=== PATIENT | female | born 1975 | race Caucasian/White ===

== ENCOUNTER → 2019-07-24 13:51 | Outpatient (CLI) | payer OTHER, SELFPAY ==
[2019-07-24 17:22] LABS: Influenza A - CEPHEID Flu A NEGATIVE (NEGATIVE); Influenza B - CEPHEID Flu B NEGATIVE (NEGATIVE)
[2019-07-26 12:04] LABS: COVID19 Sendout Not Detected (Not Detected)
== END ==
PROVIDERS: Visit Provider Physician Assistant
DX: J06.9 Acute upper respiratory infection, unspecified (principal); R05 Cough; R50.9 Fever, unspecified; R68.89 Other general symptoms and signs
CPT/HCPCS: 87502; 87635

== ENCOUNTER → 2019-07-27 11:29 | Outpatient (CLI) | payer SELFPAY | PROVIDERS: Visit Provider Family Medicine | DX: J02.9 Acute pharyngitis, unspecified (principal) | CPT/HCPCS: 87070 ==

== ENCOUNTER → 2019-08-02 12:13 | Outpatient (CLI) | payer SELFPAY ==
--- NOTE | 2019-08-02 12:16 | DI.US.S_ITS ---
PROCEDURE: US SOFT TISSUE HEAD AND NECK INDICATIONS: LEFT SUBMANDIBULAR LUMP TECHNIQUE: Real-time scanning was performed of the neck region of interest, with image documentation. COMPARISON: None. FINDINGS: Scanning is performed at the area of palpable lump involving the left submandibular gland. There is a hypoechoic nodule seen that measures 3.6 x 1.2 x 3 cm. Mild increased internal vascularity can be seen. Adjacent prominent lymph nodes are seen that measure up to 2 x 0.6 x 0.9 cm. IMPRESSION: Apparent enlargement and can be seen associated with the left submandibular gland. Please consider a dedicated CT study for further evaluation. As clinically appropriate, a percutaneous ultrasound-guided biopsy could also be considered. Dictated by: Logan Sloan M.D. on 08/02/2019 at 12:16 Approved by: Logan Sloan M.D. on 08/02/2019 at 12:17
== END ==
PROVIDERS: Referring Provider Family Medicine; Visit Provider Family Medicine
DX: R59.0 Localized enlarged lymph nodes (principal)
CPT/HCPCS: 76536

== ENCOUNTER → 2019-08-13 11:09 | Outpatient (CLI) | payer SELFPAY ==
--- NOTE | 2019-08-13 11:19 | DI.CT.S_ITS ---
PROCEDURE: CT SOFT TISSUE NECK WO CON INDICATIONS: possible abscess of her submandibular salivary gland TECHNIQUE: Non-contrast 3.0 mm axial sections acquired from the sella to the aortic arch. Additional oblique axial 3.0 mm sections acquired through the pharynx. 3 mm thick coronal and sagittal reformats were generated. For radiation dose reduction, the following was used: automated exposure control. COMPARISON: [facility], , US SOFT TISSUE HEAD AND NECK, 08/02/2019, 12:25. FINDINGS: Image quality: Excellent. Lymph nodes: At the area of clinical concern, there is a solid nodule seen that measures 18 x 13 mm in greatest axial dimension, with a craniocaudal extent of 28 mm, which demonstrates an internal density of 35 Hounsfield units. This is seen immediately posterior to the left submandibular gland. No other enlarged lymph nodes are seen. Vessels: Non-opacified vessels appear normal in caliber. Neck spaces: The oropharynx, nasopharynx, and pharynx demonstrate no mucosal lesions. The vocal cords, false vocal cords, pyriform sinuses, epiglottis, vallecula, and tongue base all appear normal. Extramucosal spaces appear unremarkable. Glands: The submandibular glands appear normal, without stones. No parotid gland abnormality can be seen on these noncontrast images. Thyroid gland demonstrates a heterogeneous appearance, with a 7 mm hypodense lesion seen on the left posteriorly, as on series 2 image 42. Miscellaneous: Visualized brain and orbits appear normal. Lung apices appear clear. Superficial soft tissues appear normal. IMPRESSION: These imaging findings are most compatible with an abnormal, enlarged lymph node seen at the clinical concern, just posterior to the left submandibular gland. No fluid collections are seen to suggest abscess. Please consider ultrasound-guided fine needle aspiration for further evaluation. Heterogeneous thyroid gland, with a 7 mm hypodense lesion seen posteriorly. Please consider a dedicated thyroid ultrasound for further evaluation. Dictated by: Logan Sloan M.D. on 08/13/2019 at 10:57 Approved by: Logan Sloan M.D. on 08/13/2019 at 11:02
== END ==
PROVIDERS: PCP Family Medicine; Referring Provider Family Medicine; Visit Provider Family Medicine
DX: R59.0 Localized enlarged lymph nodes (principal); E07.9 Disorder of thyroid, unspecified
CPT/HCPCS: 70490

== ENCOUNTER → 2019-08-18 10:39 | Outpatient (CLI) | payer SELFPAY ==
--- NOTE | 2019-08-18 10:48 | DI.US.S_ITS ---
PROCEDURE: US THYROID INDICATIONS: THYROID NODULE TECHNIQUE: Real-time scanning was performed of the thyroid gland, with image documentation. COMPARISON: [facility], CT, CT SOFT TISSUE NECK WO CON, 08/13/2019, 11:13. [facility], US, US SOFT TISSUE HEAD AND NECK, 08/02/2019, 12:25. FINDINGS: Right: Thyroid lobe measures 5.6 x 2.0 x 2.2 cm. It is markedly heterogeneous with numerous tiny low-density cystic areas and probable tiny solid nodules. The lesion identified on CT is a 7 mm benign cyst. Left: Thyroid lobe measures 5.8 x 1.9 x 2.2 cm. It is markedly heterogeneous in echo pattern with numerous tiny low-density cystic areas and probable tiny solid nodules. No measurable nodule is identified. Isthmus: 6 mm thick. Nodule number: 1 Location: Left posterior mid/lower pole Size: 0.7 cm. Composition: Cystic Echogenicity: Anechoic Shape: wider than tall. Margins: Smooth Echogenic foci: None Total points: Zero ACR TI-RADS category: Benign IMPRESSION: 1. Markedly heterogeneous thyroid with multiple probable tiny solid nodules and cysts. Findings are consistent with a multinodular thyroid. 2. The measurable lesion, in the left lobe, measures 7 mm, and is a benign cyst. ACR TI-RADS definitions and recommendations: TI-RADS 1 (benign): 0 points. FNA not needed. TI-RADS 2 (not suspicious): 2 points. FNA not needed. TI-RADS 3 (mildly suspicious): 3 points. * FNA if 2.5 cm or larger, follow up if 1.5 cm or larger (at 1, 3, and 5 years). TI-RADS 4 (moderately suspicious): 4-6 points. * FNA if 1.5 cm or larger, follow up if 1 cm or larger (at 1, 2, 3, and 5 years). TI-RADS 5 (highly suspicious): 7 points or more. * FNA if 1 cm or larger, follow up if 0.5 cm or larger (every year for 5 years). Dictated by: Thomas Kapoor M.D. on 08/18/2019 at 11:50 Approved by: Thomas Kapoor M.D. on 08/18/2019 at 11:57
== END ==
PROVIDERS: PCP Family Medicine; Referring Provider Family Medicine; Visit Provider Family Medicine
DX: E04.1 Nontoxic single thyroid nodule (principal)
CPT/HCPCS: 76536

== ENCOUNTER → 2019-08-20 13:27 | Outpatient (CLI) | payer SELFPAY ==
[2019-08-20 14:49] LABS: Add Manual Diff / Slide Review NO; Basophils Absolute Auto 0 /uL (0-100); Basophils Percent Auto 0.5 % (0-2); Eosinophils Absolute Auto 100 /uL (0-450); Eosinophils Percent Auto 0.8 % (2-4); Hematocrit 42.3 % (36-46); Hemoglobin 14.6 g/dL (12.0-16.0); Lymphocytes Absolute Auto 2800 /uL (1100-4500); Lymphocytes Percent Auto 31.7 % (25-40); Mean Corpuscular HGB Conc 34.6 % (30-36); Mean Corpuscular Hemoglobin 31.8 PG (26-34); Mean Corpuscular Volume 92.1 fL (80-100); Monocytes Absolute Auto 700 /uL (0-900); Monocytes Percent Auto 7.5 % (3-14); Neutrophils Absolute Auto 5300 /uL (1500-7000); Neutrophils Percent Auto 59.5 % (50-75); Platelet Count 234 X10^3/uL (150-400); Red Blood Cell Count 4.59 X10^6/uL (4.0-5.2); Red Cell Distribution Width 13.1 % (11.6-14.8); White Blood Cell Count 8.9 X10^3/uL (4.5-11.0)
[2019-08-20 16:30] LABS: TSH w/ Reflex to FT4 1.32 uIU/mL (0.47-4.68)
== END ==
PROVIDERS: Registered Nurse; PCP Family Medicine; Referring Provider Family Medicine; Visit Provider Family Medicine
DX: R59.1 Generalized enlarged lymph nodes (principal)
CPT/HCPCS: 36415; 84443; 85025

== ENCOUNTER → 2019-08-24 08:08 | Outpatient (CLI) | payer SELFPAY ==
--- NOTE | 2019-08-24 | PATH_ITS ---
Note [facility] Accession Number: [id number] TESTS RESULT FLAG UNITS REF RANGE LAB Clinician Provided Cytology Information No. of containers..01 Other (Miscellaneous) No. of containers..10 Previously Prepared Cytology Slide 01 LEFT SUBMANDIBULAR L DIAGNOSIS: 01 LEFT SUBMANDIBULAR LYMPH NODE, FINE NEEDLE ASPIRATION. NEGATIVE FOR MALIGNANT CELLS. FINDINGS SUGGEST A BENIGN, REACTIVE LYMPH NODE, SEE COMMENT. COMMENT: EXAMINATION OF THE SLIDES REVEALS A CELLULAR ASPIRATE COMPOSED OF MIXED SMALL AND INTERMEDIATE SIZED LYMPHOCYTES, INTERSPERSED DEBRIS-LADEN MACROPHAGES AND LYMPHOHISTIOCYTIC FRAGMENTS, FEATURES THAT ARE SUGGESTIVE OF REACTIVE LYMPH NODE SAMPLING. THERE IS NO EVIDENCE OF SUPPURATIVE OR GRANULOMATOUS LYMPHADENITIS ON THIS SAMPLE. CONCURRENT FLOW CYTOMETRY DID NOT REVEAL AN ABNORMAL B- OR T-CELL POPULATION (SEE FLOW REPORT #[id number] FOR DETAILS). HOWEVER, IF CLINICALLY OR RADIOLOGICALLY SUSPICIOUS FOR MALIGNANCY, EXCISIONAL BIOPSY SUGGESTED, IF INDICATED, SAMPLING ERROR CANNOT BE ENTIRELY EXCLUDED. Pathologist ICD10: 01 R59.0 01 Visit Reasons: (prev. neg CV) cough, swollen lymph, ear pain Intake Note: pt has been dealing with swelling in left lymph node and sore throat pt was tested for flu and covid on friday, both were negative pt big concern is its really painful and isnt getting better pt is starting to have trouble eating and drinking because of the pain lots of pressure, and somtimes a burn fevers on and off, controlled with tylenol. Note: 43yo woman without significant medical hx here due to left sided ear pain, swollen lymph node, and sore throat. She reports that since March she has intermittently had cold/flu- like symptoms, ear pain, lymph node swelling on the left side. She has missed work multiple times due to this. Around 1.5 weeks ago, she developed significant left ear pain and a lymph node on the left side under her jaw became very swollen. This has persisted since then. Her throat then became sore, She has had persistent fevers, up to 101.8F recently. She has been taking Tylenol regularly. She has frequent nausea, primarly because it hurts so much to swallow she ends up gagging. She has a mild cough, no SOB. She denies any diarrhea. She denies recent tobacco use because it echevarria her throat to smoke, but she does usually use cigarettes. She denies any known contacts with COVID. She was seen on 07/23 here, and tested negative for COVID-19. (1) Sore throat: Assessment and Plan - Kitty Puentes MD: with significant erythema and exudates, tonsillar enlargement and associated left ear pain and enlarged/tender lymph node. Rapid strep negative. Sent for culture as well. Will treat throat with prednisone for now to help with symptom management due to inability to tolerate PO. If throat culture negative and LN remains enlarged, plan to obtain u/s of lymph node to evaluate further. 01 Mario Mera MD, Pathologist NPI- [id number] Hussain Dominguez, Storage Facility Rental Clerk ([facility]) 01 30 CC, COLORLESS, CLEAR RECIEVED: IN CYTOLYT WITH 6 ALCOHOL FIXED AND 4 QUICK STAINED SLIDES ALSO TWO RPMI TUBES WERE RECEIVED. /DEANDRE 08/25/2019 0619 Local FLAG LEGEND: L-Low Normal,H-High Normal,LL-Alert Low,HH-Alert High <-Panic Low,>-Panic High,A-Abnormal,AA-Critical Abnormal Performed at: 01 =Z [facility] [address], [place] [address] Waldo Ramirez MD, Performed at: 01 [facility] [address], [place], [place] [id number] MD Waldo Ramirez MD Phone: [phone]
--- NOTE | 2019-08-24 08:18 | DI.US.S_ITS ---
PROCEDURE: US FINE NEEDLE ASPIRATION INDICATIONS: ENLARGED LYMPH NODE TECHNIQUE: The indications, alternatives, benefits, risks, and complications of the procedure were explained to the patient. Written informed consent was obtained and placed in the chart. Real-time sonography was utilized to choose the site for percutaneous lymph node sampling. The skin was prepped and draped in the usual sterile fashion. 1% lidocaine was infiltrated down to the site of interest. Serial hypodermic needles were then advanced into the site of interest under direct sonographic visualization, and serial needle aspirates were obtained. The needles were then withdrawn; a bandage was applied to the procedure site. COMPARISON: None. FINDINGS: Sample site(s): Left neck, below the angle of the jaw Needle: 25 gauge, 22 gauge. Number of passes: 6 with 25 gauge, one with a 22 gauge. Medications: 1% lidocaine for local anaesthesia. Complications: None. IMPRESSION: Successful ultrasound-guided left submandibular lymph node fine needle aspiration, with cytology results pending. Dictated by: Delbert Rain M.D. on 08/24/2019 at 10:11 Approved by: Delbert Rain M.D. on 08/24/2019 at 10:13
== END ==
PROVIDERS: PCP Family Medicine; Referring Provider Family Medicine; Visit Provider Family Medicine
DX: R59.0 Localized enlarged lymph nodes (principal)
CPT/HCPCS: 10005

== ENCOUNTER → 2019-09-01 14:52 | Outpatient (CLI) | payer SELFPAY ==
[2019-09-01 15:27] LABS: Add Manual Diff / Slide Review NO; Basophils Absolute Auto 100 /uL (0-100); Eosinophils Absolute Auto 0 /uL (0-450); Eosinophils Percent Auto 0.6 % (2-4); Hematocrit 41.3 % (36-46); Hemoglobin 14.2 g/dL (12.0-16.0); Lymphocytes Absolute Auto 2700 /uL (1100-4500); Lymphocytes Percent Auto 36.2 % (25-40); Mean Corpuscular HGB Conc 34.4 % (30-36); Mean Corpuscular Hemoglobin 31.8 PG (26-34); Mean Corpuscular Volume 92.4 fL (80-100); Monocytes Absolute Auto 600 /uL (0-900); Monocytes Percent Auto 7.3 % (3-14); Neutrophils Absolute Auto 4200 /uL (1500-7000); Neutrophils Percent Auto 54.9 % (50-75); Platelet Count 223 X10^3/uL (150-400); Red Blood Cell Count 4.47 X10^6/uL (4.0-5.2); Red Cell Distribution Width 13.6 % (11.6-14.8); White Blood Cell Count 7.6 X10^3/uL (4.5-11.0)
[2019-09-01 17:38] LABS: Alanine Aminotransferase 13 IU/L (<35); Albumin 4.5 g/dL (3.5-5.0); Albumin Globulin Ratio 1.4 (1.0-2.8); Alkaline Phosphatase 171 U/L (38-126); Aspartate Aminotransferase 24 IU/L (14-36); BUN Creatinine Ratio 21.5 (6-22); Bilirubin Total 0.3 mg/dL (0.2-1.3); Blood Urea Nitrogen 14 mg/dL (7-17); Calcium 9.8 mg/dL (8.4-10.2); Carbon Dioxide 28 mmol/L (22-32); Chloride 101 mmol/L (98-107); Estimated Glomerular Filt Rate > 60.0 mL/min (>60); Globulin 3.3 g/dL (1.7-4.1); Glucose 91 mg/dL (70-100); HEMOLYSIS < 15 (0-50); Potassium 4.2 mmol/L (3.4-5.1); Sodium 136 mmol/L (137-145); Total Protein 7.8 g/dL (6.3-8.2)
== END ==
PROVIDERS: PCP Family Medicine; Referring Provider Family Medicine; Visit Provider Family Medicine
DX: R59.0 Localized enlarged lymph nodes (principal); R61 Generalized hyperhidrosis
CPT/HCPCS: 36415; 80053; 85025

== ENCOUNTER → 2019-09-18 13:38 | Outpatient (CLI) | payer OTHER, SELFPAY ==
[2019-09-19 08:22] LABS: COVID19 Sendout Not Detected (Not Detect)
== END ==
PROVIDERS: PCP Family Medicine; Visit Provider Physician Assistant
DX: Z01.818 Encounter for other preprocedural examination (principal); Z11.59 Encounter for screening for other viral diseases
CPT/HCPCS: 87635

== ENCOUNTER 2019-09-21 12:26 | Day surgery (SDC) | payer SELFPAY ==
[2019-09-15 11:41] VITALS: BMI 24.9
--- NOTE | 2019-09-17 14:21 | SUR.PREOP ---
Per pt she is schd to have covid testing on Sat 09/20 @ [id number] here @ [facility]
[2019-09-21] VITALS (7 sets, daily range): BP systolic 102–113; BP diastolic 66–74; PULSE 52–70; RESP 13–19; TEMP 36.3–36.8; O2SAT 96–99; BMI 24.9
--- NOTE | 2019-09-21 | PATH_ITS ---
Note [facility] Accession Number: [id number] TESTS RESULT FLAG UNITS REF RANGE LAB Clinician Provided Cytology Information No. of containers..02 Previously Prepared Cytology Slide 01 LYMPH NODE OF LEFT NECK DIAGNOSIS: 01 LYMPH NODE OF LEFT NECK INADEQUATE, INSUFFICIENT CELLS FOR STUDY. COMMENT: The specimen is paucicellular and consists of scant lymphoid cells with air drying artifact, which limits further classification. If there is a clinical suspicion for neoplasia or malignancy, tissue examination is recommended. This case is also reviewed by Dr. Yessy Mera who concurs with the given interpretation. Pathologist ICD10: 01 R22.1 Shirley Greene MD, Pathologist NPI- [id number] Dejan Lennon, Technical Solution Architect ([facility]) 01 RECIEVED: 2 ALCOHOL FIXED SLIDES IN [facility]. /KAVEH 09/22/2019 1015 Local FLAG LEGEND: L-Low Normal,H-High Normal,LL-Alert Low,HH-Alert High <-Panic Low,>-Panic High,A-Abnormal,AA-Critical Abnormal Performed at: 01 =Z [facility] [address], [place] [address] Waldo Ramirez MD, Performed at: 01 [facility] [address], [place], [place] [id number] MD Waldo Ramirez MD Phone: [phone]
[2019-09-21] MEDS: LACTATED RINGERS 1,000 ML 100 ML IV (12:40)
--- NOTE | 2019-09-21 14:59 | PM.PREOP ---
Pre-operative Note COVID-19 COVID-19 status: Negative Result date/Date tested (Pos, Neg/Pending): 09/18/19 Interval Note History & Physical reviewed/Exam performed by Physician: Yes Changes to H&P: No
--- NOTE | 2019-09-21 15:26 | SUR.OPER ---
Supine on padded OR bed, head on pillow, arms secured on padded arm boards at <90 degrees abduction, legs uncrossed, safety belt at thigh, tape over blanket over lower legs.
[2019-09-21] MEDS: CEFAZOLIN 2 GM/100 ML FROZ.PIGGY IV (15:31)
[2019-09-21] MEDS: BUPIVACAINE 0.25% (PF) VIAL 30 ML INJ (15:49)
--- NOTE | 2019-09-21 16:18 | PM.OP.1 ---
Operative Date/Time/Diagnoses Date of procedure: 09/21/19 Time of procedure: 16:18 Pre-op diagnosis: Left neck lymphadenopathy Post-op diagnosis: same Procedure & Clinicians Procedure: Excision left neck lymph node Same procedure as scheduled: Yes Indications: 44-year-old female with fever night sweats and left neck lymphadenopathy. She underwent a needle biopsy of lymph node which was nondiagnostic and she continues to be symptomatic and therefore she was recommended to undergo excisional lymph node biopsy. Surgeon: Brent Jenkins Anesthesia Type: General Operative Notes Findings: Mild left neck lymphadenopathy Specimen(s): other (Left neck lymph node) Estimated Blood Loss (mL): 5 Procedure in detail: Patient brought to the operating room placed supine on the table. Bilateral lower extremity compression devices were applied. She received 2 g of Ancef prior to skin incision. She was induced and intubated with a LMA. Time-out was performed to ensure the correct patient procedure necessary equipment within the operating room. She was then prepped and draped in sterile fashion. I identified the angle of the mandible and the sternocleidomastoid muscle. The area of palpable lymphadenopathy had been identified in the preoperative area and marked it was inferior to the mandible just posterior to the submandibular gland. Skin incision was made anterior to the sternocleidomastoid muscle of approximately 2 cm. The subcutaneous tissues were divided with electrocautery. The platysma was sharply incised. The anterior of aspect of the sternocleidomastoid was retracted posteriorly. A superficial cervical lymph node was palpated and then meticulously dissected out. It was passed off the field as specimen labeled left neck lymph node. The node was approximately 1.5 cm and was transected into the 3 pieces. The wound was irrigated hemostasis was achieved and then the skin was closed in a running fashion using 4 Monocryl suture followed by the application of Dermabond. Patient tolerated procedure well was extubated and transferred to recovery in stable condition. Complications: none Post-operative Condition: stable Disposition: same day surgery
[2019-09-21] MEDS: OXYCODONE/ACETAMINOPHEN 5/325 TABLET 1 TAB PO (16:36)
== END 2019-09-21 17:15 | disposition home or self-care (01) ==
PROVIDERS: PCP Family Medicine; Referring Provider Surgery; Visit Provider Surgery
PROC: (CPT 38510; principal; 2019-09-21 13:45)
DX: R59.1 Generalized enlarged lymph nodes (principal)
CPT/HCPCS: 38510; J0690; J1100; J2250; J2405; J2704; J3010

== ENCOUNTER → 2019-12-16 09:33 | Outpatient (CLI) | payer SELFPAY | PROVIDERS: PCP Family Medicine; Referring Provider Family Medicine; Visit Provider Family Medicine | DX: M25.50 Pain in unspecified joint (principal); R68.89 Other general symptoms and signs | CPT/HCPCS: 36415; 86617 ==

== ENCOUNTER → 2020-06-29 15:03 | Outpatient (CLI) | payer SELFPAY ==
[2020-06-29 15:51] LABS: Add Manual Diff / Slide Review NO; Basophils Absolute Auto 100 /uL (0-100); Basophils Percent Auto 1.3 % (0-2); Eosinophils Absolute Auto 100 /uL (0-450); Eosinophils Percent Auto 0.6 % (2-4); Hematocrit 41.4 % (36-46); Hemoglobin 14.3 g/dL (12.0-16.0); Lymphocytes Absolute Auto 2700 /uL (1100-4500); Lymphocytes Percent Auto 28.4 % (25-40); Mean Corpuscular HGB Conc 34.6 % (30-36); Mean Corpuscular Hemoglobin 31.7 PG (26-34); Mean Corpuscular Volume 91.8 fL (80-100); Monocytes Absolute Auto 500 /uL (0-900); Monocytes Percent Auto 5.6 % (3-14); Neutrophils Absolute Auto 6100 /uL (1500-7000); Neutrophils Percent Auto 64.1 % (50-75); Platelet Count 212 X10^3/uL (150-400); Red Blood Cell Count 4.52 X10^6/uL (4.0-5.2); Red Cell Distribution Width 13.1 % (11.6-14.8); White Blood Cell Count 9.4 X10^3/uL (4.5-11.0)
[2020-06-29 16:24] LABS: Alanine Aminotransferase 15 IU/L (<35); Albumin 4.6 g/dL (3.5-5.0); Albumin Globulin Ratio 1.7 (1.0-2.8); Alkaline Phosphatase 145 U/L (38-126); Aspartate Aminotransferase 25 IU/L (14-36); BUN Creatinine Ratio 19.5 (6-22); Bilirubin Total 0.3 mg/dL (0.2-1.3); Blood Urea Nitrogen 16 mg/dL (7-17); Calcium 9.4 mg/dL (8.4-10.2); Carbon Dioxide 27 mmol/L (22-32); Chloride 103 mmol/L (98-107); Estimated Glomerular Filt Rate > 60.0 mL/min (>60); Globulin 2.7 g/dL (1.7-4.1); Glucose 96 mg/dL (70-100); HEMOLYSIS < 15 (0-50); Potassium 4.4 mmol/L (3.4-5.1); Sodium 136 mmol/L (137-145); Total Protein 7.3 g/dL (6.3-8.2)
== END ==
PROVIDERS: PCP Family Medicine; Referring Provider Family Medicine; Visit Provider Family Medicine
DX: R59.0 Localized enlarged lymph nodes (principal); R61 Generalized hyperhidrosis
CPT/HCPCS: 36415; 80053; 85025

== ENCOUNTER → 2020-07-13 08:44 | Outpatient (CLI) | payer SELFPAY | PROVIDERS: PCP Family Medicine; Referring Provider Family Medicine; Visit Provider Family Medicine | DX: R59.0 Localized enlarged lymph nodes (principal); R61 Generalized hyperhidrosis; Z53.8 Procedure and treatment not carried out for other reasons ==